=== PATIENT | male | born 1985 | race Caucasian/White ===

== ENCOUNTER 2024-03-10 11:59 | Emergency (ER) | payer MEDICAID ==
[2024-03-10] MEDS: Nicotine 21 MG/24 Hr Patch TRDERM ONE (12:48)
[2024-03-10 13:16] LABS: RED BLOOD CELL COUNT 4.51 M/uL (4.14-5.76); WHITE BLOOD CELL COUNT,WBC 4.8 K/uL (3.2-11.0)
[2024-03-10 13:17] LABS: HEMATOCRIT 42.7 % (38.4-49.7); MEAN CORPUSCULAR HEMOGLOBIN 33.3 pg (31.6-35.5); MEAN CORPUSCULAR HGB CONC 35.1 g/dL (31.6-35.5); MEAN CORPUSCULAR VOLUME 94.7 fL (81.4-99.0); PLATELET COUNT,PLT 303 K/uL (130-375)
[2024-03-10 13:18] LABS: EOSINOPHILS PERCENT AUTO 1.9 % (0.0-5.4); MONOCYTES PERCENT AUTO 8.7 % (3.3-12.6)
[2024-03-10 13:20] LABS: AMPHETAMINES SCREEN, URINE NEGATIVE (NEGATIVE); BARBITURATE SCREEN,URINE NEGATIVE (NEGATIVE); BENZODIAZEPINES SCREEN,URINE NEGATIVE (NEGATIVE); METHADONE SCREEN, URINE NEGATIVE (NEGATIVE); METHAMPHETAMINES SCREEN, URINE PRESUMPTIVE POSITIVE (NEGATIVE); OXYCODONE SCREEN,URINE NEGATIVE (NEGATIVE); PROPOXYPHENE SCREEN,URINE NEGATIVE (NEGATIVE); THC SCREEN,URINE 50 NG/ML NEGATIVE (NEGATIVE)
[2024-03-10 13:20] LABS: EOSINOPHILS ABSOLUTE AUTO 0.09 K/uL (0.00-0.40); LYMPHOCYTES ABSOLUTE AUTO 1.98 K/uL (0.8-3.3); MONOCYTES ABSOLUTE AUTO 0.42 K/uL (0.20-0.90); NEUTROPHILS ABSOLUTE AUTO 2.22 K/uL (1.0-7.6)
[2024-03-10 13:21] LABS: BASOPHILS ABSOLUTE AUTO 0.05 K/uL (0.00-0.10)
[2024-03-10 13:37] LABS: ANION GAP 13.7 mmol/L (5.0-14.0); CALCIUM 8.3 mg/dL (8.5-10.1); CREATININE 0.8 mg/dL (0.8-1.3); EST CRCL DRUG DOSING (CG) 118.75 mL/min; POTASSIUM,K 3.7 mmol/L (3.6-5.2)
== END 2024-03-10 17:10 | disposition home or self-care (01) ==
LOC: JP.ED 11:59 → EDBD 11:59 → JP.ED 17:10
DX: F10.10 Alcohol abuse, uncomplicated (principal); Z87.891 Personal history of nicotine dependence; Y90.9 Presence of alcohol in blood, level not specified
CPT/HCPCS: 36415; 80048; 80305; 80307; 85025; 99283; A9270